=== PATIENT | male | born 1955 ===

== ENCOUNTER 2022-06-07 04:24 | Day surgery (SDC) | payer OTHER ==
[2022-06-04 10:52] VITALS: BMI 42.3
[2022-06-07 09:53] VITALS: TEMP 98.2
[2022-06-07 09:57] VITALS: RESP 18
[2022-06-07 10:02] VITALS: BP 121/57; PULSE 72
== END 2022-06-07 10:10 | disposition home or self-care (01) ==
LOC: JASU-ENDO 04:24
PROVIDERS: ATTEND Internal Medicine Gastroenterology
PROC: 0DJD8ZZ Inspection of Lower Intestinal Tract, Via Natural or Artificial Opening Endoscopic (ICD-10-PCS; principal; 2022-06-07 09:00)
DX: Z12.11 Encounter for screening for malignant neoplasm of colon (principal); Z86.010 Personal history of colon polyps; K57.30 Diverticulosis of large intestine without perforation or abscess without bleeding; K64.8 Other hemorrhoids